=== PATIENT | female | born 1970 | race Two or more races ===

== ENCOUNTER 2018-09-04 08:30 | Outpatient (CLI) | payer OTHER | END 2018-09-04 08:40 | disposition home or self-care (01) | LOC: TOM 08:30 | DX: R31.29 Other microscopic hematuria (principal) ==

== ENCOUNTER 2018-09-06 09:07 | Outpatient (CLI) | payer OTHER | END 2018-09-06 15:00 | disposition home or self-care (01) | LOC: RAD 09:07 | DX: M41.85 Other forms of scoliosis, thoracolumbar region (principal) ==

== ENCOUNTER → 2020-08-04 | Outpatient (CLI) | payer OTHER | END | disposition home or self-care (01) | LOC: RAD 11:59 | PROVIDERS: ATTEND Internal Medicine Cardiovascular Disease | DX: I10 Essential (primary) hypertension (principal) ==

== ENCOUNTER 2020-11-24 14:01 | Outpatient (CLI) | payer OTHER | END 2020-11-24 15:05 | disposition home or self-care (01) | LOC: OFIC 805 14:01 | PROVIDERS: ATTEND Otolaryngology | DX: H92.02 Otalgia, left ear (principal); M26.621 Arthralgia of right temporomandibular joint ==

== ENCOUNTER 2021-08-11 08:00 | Outpatient (CLI) | payer OTHER | END 2021-08-11 08:30 | disposition home or self-care (01) | LOC: PPH VACUNA 08:00 | PROVIDERS: ATTEND Emergency Medicine Pediatric Emergency Medicine | DX: Z23 Encounter for immunization (principal) ==

== ENCOUNTER 2024-07-04 12:46 | Outpatient (CLI) | payer OTHER | END 2024-07-04 14:36 | disposition home or self-care (01) | LOC: SONOGRAMA 12:46 | PROVIDERS: ATTEND Physical Medicine & Rehabilitation | DX: M17.12 Unilateral primary osteoarthritis, left knee (principal); M71.22 Synovial cyst of popliteal space [Baker], left knee ==

== ENCOUNTER → 2025-09-02 | Outpatient (CLI) | payer OTHER | END | disposition home or self-care (01) | LOC: RAD 06:55 | PROVIDERS: ATTEND Specialist | DX: R07.9 Chest pain, unspecified (principal) ==